=== PATIENT | male | born 1980 | race African-American/Black ===

== ENCOUNTER 2016-07-16 19:47 | Emergency (ER) | payer OTHER ==
[~2016-07-16] VITALS: Ht 172.7 cm; Wt 85.3 kg
[~2016-07-16 19:47] MED LIST: AMITRIPTYLINE H50 M2 PO; AZITHROMYCIN 2250 MG PO; CARAFATE 1 GM TA1 G1 PO; CIPROFLOXACIN500 M1 PO; COLACE100 MG PO; ERYTHROMYCIN ETHYLSUCCINATE; FLAGYL500 MG PO; FLEXERIL PO; IBUPROFEN 600600 M1 PO; NEXIUM 40 MG CA40 M1 PO; NEXIUM PO; NEXIUM40 MG PO; NOHOMEMEDICATIONS; NORCO 5-325 TA1 EACH PO; PERCOCET 5-3251 EACH PO; PHENERGAN 25 MG25 M1 PO; PHENERGAN25 M2 RC; REGLAN 10 MG TA10 M1 PO; ULTRAM 50MG TAB50 MG PO; VALIUM2 MG PO; VICODIN 5-5001 EACH PO; XANAX 0.5 MG0.5 M1 PO; ZOFRAN 4 MG ORAL4 M1 DIS; ZOFRAN ODT4 MG PO; ZOFRAN4 MG PO
[2016-07-16] MEDS ORDERED: TRAMADOL 50 MG50 MG PO (20:57)
[2016-07-16 21:19] VITALS: BP 149/88
[2016-09-02] MEDS ORDERED: NORCO 5-325 TA1 EACH PO (10:13)
== END 2016-07-16 21:20 | disposition home or self-care (01) ==
LOC: ER 19:47
DX: S61.210A Laceration without foreign body of right index finger without damage to nail, initial encounter (principal); M25.562 Pain in left knee; X58.XXXA Exposure to other specified factors, initial encounter; Y93.89 Activity, other specified; Y92.89 Other specified places as the place of occurrence of the external cause; Y99.0 Civilian activity done for income or pay

== ENCOUNTER 2017-01-22 18:49 | Emergency (ER) | payer OTHER ==
[~2017-01-22] VITALS: Ht 175.3 cm; Wt 88.9 kg
[~2017-01-22 18:49] MED LIST changes: +TRAMADOL 50 MG50 MG PO
[2017-01-22 18:50] VITALS: BP 122/87
[2017-01-22] MEDS ORDERED: NORCO 5-325 TA1 EACH PO (19:41)
[2017-01-22] MEDS ORDERED: IBUPROFEN 600600 M1 PO (19:42)
== END 2017-01-22 19:52 | disposition home or self-care (01) ==
LOC: ER 18:49
DX: M25.461 Effusion, right knee (principal); F17.210 Nicotine dependence, cigarettes, uncomplicated; F10.99 Alcohol use, unspecified with unspecified alcohol-induced disorder; F15.90 Other stimulant use, unspecified, uncomplicated

== ENCOUNTER 2017-06-22 23:31 | Emergency (ER) | payer OTHER ==
[~2017-06-22] VITALS: Ht 172.7 cm; Wt 88.5 kg
[2017-06-23 00:07] LABS: HEMATOCRIT 39.1 % (42.0-52.0); HEMOGLOBIN 13.4 gm/dL (14.0-18.0); MCH 30.4 pg (26.0-34.0); MCHC 34.2 g/dL (28.0-37.0); MCV 88.8 fL (80.0-100.0); PLATELET COUNT 334 thou/uL (150-400); RDW 13.3 % (10.5-14.5); WBC 8.3 thou/uL (4.0-11.0)
[2017-06-23 00:09] LABS: MANUAL DIFF YES
[2017-06-23 00:15] LABS: ANION GAP 10 mmol/L (7-16); BUN 9 mg/dL (7-18); CALCIUM 8.9 mg/dL (8.5-10.1); CHLORIDE 104 mmol/L (98-107); CO2 26 mmol/L (21-32); GLUCOSE 107 mg/dL (74-106); POTASSIUM 3.8 mmol/L (3.5-5.1); SODIUM 140 mmol/L (136-145)
[2017-06-23 00:21] LABS: ALBUMIN 3.7 g/dL (3.4-5.0); ALKALINE PHOSPHATASE 91 U/L (46-116); DIRECT BILIRUBIN < 0.1 mg/dL (<0.1-0.3); SGOT 25 U/L (15-37); SGPT 35 U/L (30-65); TOTAL BILIRUBIN 0.2 mg/dL (<0.1-1.0); TOTAL PROTEIN 7.1 g/dL (6.4-8.2)
[2017-06-23 00:36] LABS: TOTAL CELL COUNT 100
[2017-06-23 01:51] LABS: URINE BILIRUBIN NEGATIVE (Negative); URINE BLOOD NEGATIVE (Negative); URINE COLOR YELLOW; URINE GLUCOSE-RANDOM* NEGATIVE (Negative); URINE KETONES NEGATIVE (Negative); URINE LEUKOCYTES-REFLEX NEGATIVE (Negative); URINE PROTEIN (DIPSTICK) NEGATIVE (Negative); URINE SPECIFIC GRAVITY <= 1.005 (1.005-1.035); URINE UROBILINOGEN 0.2 E.U./dl (0.2-1.0)
[2017-06-23] MEDS ORDERED: ZOFRAN ODT4 MG PO (02:02)
[2017-06-23] MEDS ORDERED: PHENERGAN 25 MG25 M1 PO (02:02)
[2017-06-23 02:06] VITALS: BP 122/70
== END 2017-06-23 02:10 | disposition home or self-care (01) ==
LOC: ER 23:31
PROVIDERS: Emergency Medicine
DX: R11.2 Nausea with vomiting, unspecified (principal); G43.A0 Cyclical vomiting, in migraine, not intractable; F17.210 Nicotine dependence, cigarettes, uncomplicated

== ENCOUNTER 2018-11-30 08:36 | Emergency (ER) | payer OTHER ==
[~2018-11-30] VITALS: Ht 172.7 cm; Wt 74.8 kg
[2018-11-30] MEDS ORDERED: NAPROSYN500 MG PO (10:03)
[2018-11-30] MEDS ORDERED: ROBAXIN 750 MG750 M1 PO (10:03)
[2018-11-30 10:18] VITALS: BP 122/71
== END 2018-11-30 10:18 | disposition home or self-care (01) ==
LOC: ER 08:36
DX: M25.552 Pain in left hip (principal); F17.210 Nicotine dependence, cigarettes, uncomplicated

== ENCOUNTER 2019-05-16 14:19 | Emergency (ER) | payer OTHER ==
[~2019-05-16] VITALS: Ht 175.3 cm; Wt 74.8 kg
[~2019-05-16 14:19] MED LIST changes: +NAPROSYN500 MG PO; +ROBAXIN 750 MG750 M1 PO
[2019-05-16] MEDS ORDERED: CYCLOBENZAPRINE5 MG PO (16:38)
[2019-05-16] MEDS ORDERED: NORCO 5-325 TA1 EAC1 PO (16:38)
[2019-05-16] MEDS ORDERED: MEDROLDOSEPACK PO (16:38)
[2019-05-16 17:25] VITALS: BP 135/88
== END 2019-05-16 17:35 | disposition home or self-care (01) ==
LOC: ER 14:19
DX: M51.26 Other intervertebral disc displacement, lumbar region (principal); F17.210 Nicotine dependence, cigarettes, uncomplicated

== ENCOUNTER 2020-01-20 18:25 | Emergency (ER) | payer OTHER ==
[~2020-01-20] VITALS: Ht 172.7 cm; Wt 74.8 kg
[~2020-01-20 18:25] MED LIST changes: +CYCLOBENZAPRINE5 MG PO; +MEDROLDOSEPACK PO; +NORCO 5-325 TA1 EAC1 PO
[2020-01-20] MEDS ORDERED: MEDROLDOSEPACK PO (19:41)
[2020-01-20] MEDS ORDERED: NORCO 5-325 TA1 EAC2 PO (19:41)
[2020-01-20] MEDS ORDERED: CYCLOBENZAPRINE5 MG PO (19:41)
[2020-01-20 20:26] VITALS: BP 132/88
== END 2020-01-20 20:30 | disposition home or self-care (01) ==
LOC: ER 18:25
DX: M51.26 Other intervertebral disc displacement, lumbar region (principal); F12.90 Cannabis use, unspecified, uncomplicated; F17.210 Nicotine dependence, cigarettes, uncomplicated; Z79.899 Other long term (current) drug therapy; V49.88XA Car occupant (driver) (passenger) injured in other specified transport accidents, initial encounter; Y93.89 Activity, other specified; Y92.413 State road as the place of occurrence of the external cause; Y99.9 Unspecified external cause status

== ENCOUNTER 2020-02-03 03:46 | Emergency (ER) | payer OTHER ==
[~2020-02-03] VITALS: Ht 175.3 cm; Wt 77.1 kg
[~2020-02-03 03:46] MED LIST changes: +NORCO 5-325 TA1 EAC2 PO
[2020-02-03] MEDS ORDERED: CARAFATE 1 GM TA1 G1 PO (03:54)
[2020-02-03 04:30] VITALS: BP 122/67
== END 2020-02-03 04:30 | disposition home or self-care (01) ==
LOC: ER 03:46
DX: S39.012A Strain of muscle, fascia and tendon of lower back, initial encounter (principal); F12.90 Cannabis use, unspecified, uncomplicated; F17.210 Nicotine dependence, cigarettes, uncomplicated; Z79.899 Other long term (current) drug therapy; V49.88XA Car occupant (driver) (passenger) injured in other specified transport accidents, initial encounter; Y93.89 Activity, other specified; Y92.413 State road as the place of occurrence of the external cause; Y99.9 Unspecified external cause status